=== PATIENT | male | born 1990 | race Caucasian/White ===

== ENCOUNTER 2017-05-26 20:26 | Emergency (ER) | payer OTHER ==
[2017-05-26] MEDS ORDERED: DIPH/PERTUSS(ACELL)/TETANUS VAC/PF 0.5 ML SYR (>=10YO) IM ONE (21:13)
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
[2017-05-26 22:13] VITALS: BP 125/81
== END 2017-05-26 22:13 | disposition home or self-care (01) ==
LOC: ER 20:26
DX: T25.421A Corrosion of unspecified degree of right foot, initial encounter (principal); T65.91XA Toxic effect of unspecified substance, accidental (unintentional), initial encounter; Y92.89 Other specified places as the place of occurrence of the external cause
CPT/HCPCS: 90715; 99283